=== PATIENT | female | born 1960 | race Caucasian/White ===

== ENCOUNTER 2019-01-30 05:37 | Day surgery (SDC) | payer OTHER ==
[2019-01-30] MEDS ORDERED: Ketamine HCl 50 MG/ML IV ONE (05:38)
[2019-01-30] MEDS ORDERED: DIPRIVAN 200 MG/20 ML IV ONE (05:38)
[2019-01-30] MEDS ORDERED: Lactated Ringers 1,000 ML IV SCH (06:30)
[2019-01-30 06:33] VITALS: O2SAT 97
--- NOTE | 2019-01-30 07:44 | OP ---
SURGERY DATE/TIME: 01/30/2019 0700 PREOPERATIVE DIAGNOSIS: Dyspepsia. POSTOPERATIVE DIAGNOSIS: Mild gastritis. PROCEDURE: Esophagogastroduodenoscopy. SURGEON: Dr. Fong. ANESTHESIA: Medications were given by the anesthesia department. BRIEF HISTORY: The patient is a 58 year old white female who has had problems with abdominal discomfort for the past two to three years. She reports she has been taking Zantac without relief. She is tired of being sick all the time. The patient is noted to take aspirin on a regular basis. She also takes Metformin for diabetes mellitus type 2. The patient was appraised of the risks of the procedure including the risk of perforation, phlebitis, untoward reaction to medication, bleeding and missed lesions. The patient verbalized her understanding and desired to have the procedure performed. DESCRIPTION OF PROCEDURE: The patient was given the medications by the anesthesia department. She had continuous pulse oximetry, ECG monitoring, intermittent blood pressure monitoring and tidal CO2 monitoring during the examination. She was placed in the left lateral decubitus position. A bite block was placed and the flexible Olympus gastroscope was used to intubate the oropharynx. The scope was easily introduced in the esophagus which appeared to be normal throughout its length. The stomach was entered where normal gastric rugal folds were seen. The gastric martinez was suctioned dry and stomach was insufflated. The gastric rugal folds distended nicely with the insufflation of air. The scope was passed along the greater curvature of the stomach to the antrum. The pylorus was encountered and intubated. The duodenum was inspected and found to be essentially normal. The scope is withdrawn towards the stomach. Again, a retroflex view was obtained of the lesser curvature, fundus and cardia regions of the stomach appeared to be normal other than the presence of hiatal hernia. The scope was then redirected towards the gastric antrum and biopsies were obtained with cold biopsy forceps technique to rule out the presence of Helicobacter pylori-type organisms and to confirm the presence of gastritis. The scope was then removed from the patient who tolerated the procedure well and was sent back to outpatient recovery in good condition.
[2019-01-30 08:22] VITALS: BP 135/72; PULSE 74
== END 2019-01-30 08:42 | disposition home or self-care (01) ==
LOC: SDC 05:37
PROVIDERS: ATTEND Family Medicine
DX: K29.70 Gastritis, unspecified, without bleeding (principal); R10.13 Epigastric pain; K44.9 Diaphragmatic hernia without obstruction or gangrene; E11.9 Type 2 diabetes mellitus without complications; Z79.84 Long term (current) use of oral hypoglycemic drugs
CPT/HCPCS: 88305; J2704